=== PATIENT | female | born 1945 | race Caucasian/White ===

== ENCOUNTER → 2024-01-24 12:54 | Outpatient (REF) | payer MEDICARE, SELFPAY | LOC: RAD 12:54 | PROVIDERS: ATTENDING PHYSICIAN Nurse Practitioner Family; FAMILY PHYSICIAN Internal Medicine | DX: J32.9 Chronic sinusitis, unspecified (principal) | CPT/HCPCS: 70486 ==

== ENCOUNTER → 2024-03-26 07:01 | Outpatient (REF) | payer MEDICARE, SELFPAY | LOC: RAD 07:01 | PROVIDERS: ATTENDING PHYSICIAN Nurse Practitioner Family | DX: G44.52 New daily persistent headache (NDPH) (principal) | CPT/HCPCS: 70470; Q9967 ==

== ENCOUNTER → 2024-04-16 10:33 | Outpatient (REF) | payer MEDICARE, SELFPAY | LOC: RAD 10:33 | PROVIDERS: ATTENDING PHYSICIAN Nurse Practitioner Family | DX: M54.2 Cervicalgia (principal) | CPT/HCPCS: 72050 ==

== ENCOUNTER 2025-02-14 13:38 | Observation (INO) | payer MEDICARE, SELFPAY ==
[2025-02-14] VITALS (8 sets, daily range): BP systolic 123–187; BP diastolic 60–91; BMI 29.1; BMI 28.4
--- NOTE | 2025-02-14 05:21 | ED.GENMED ---
History of Present Illness
<Clarita Patel PA-C - Last Filed: 02/15/25 12:18>
General
Chief Complaint: Abdominal Pain
Source: patient
Exam Limitations: none
Time Seen by Provider: 02/14/25 05:02
Nursing documentation reviewed up to this point in time: agreed with
History of Present Illness
History of Present Illness:
79 y/o F with h/o hld
pain in the RUQ radiating to her back since yesterday am sometime; waxing and waning
associated with nausea, no vomiting
no urinary symptoms
no diarrhea, last BM yesterday am
no fever/chills
has had this before a few times over the year or more without findings, she was here in 2021 without any radiologic evidence of kidney stone or gb stones
she suspects gallsontes but doesn't know if it's post prandial
took a muscle relaxant last night
had trouble sleeping
Past History
<PEBBLES Rosario Last Filed: 02/15/25 12:18>
Past History
ED Past Medical History: Hypercholesterolemia
ED Past Surgical History: Gynecological (Hysterectomy)
Social History
Tobacco: Non-smoker
Alcohol: Occasional
Drug: None
Personal:
Living: with family
Review of Systems
<Clarita Patel PA-C - Last Filed: 02/15/25 12:18>
Review of Systems
Allergies reviewed?: Yes
All Other Systems: Not applicable
Phy Exam
<PEBBLES Rosario Last Filed: 02/15/25 12:18>
Physical Exam
Physical Exam:
GENERAL: Alert, uncomfortable
Neck: supple
CARDIAC: Regular rate and rhythm .no edema
LUNGS: Clear breath sounds bilaterally, no acute respiratory distress, no wheezes/rales/rhonchi
ABDOMEN: Soft, normal bowel sounds, nondistended, mild RUQ tendneres mild R cva tenderness, no guarding, no rebound, neg vital's
NEUROLOGICAL: Alert and oriented, no focal neuro deficits
SKIN: Warm and dry, skin intact.
PSYCH: Normal and appropriate interaction.
Course
<Clarita Patel PA-C - Last Filed: 02/15/25 12:18>
Orders/Labs/Results
Orders:
Orders
02/14/25 05:16
Electrocardiogram (*1) Urgent
Reason for Study: Abdominal Pain
EKG- Treatment ONCE
0.9% Sodium Chloride 1000 ml [Nss] 1,000 ml IV BOLUS
HYDROmorphone [Dilaudid] 0.5 mg IV NOW STA
Ketorolac [Toradol] 15 mg IV NOW STA
Ondansetron Injectable [Zofran] 4 mg IV NOW STA
02/14/25 05:24
C-Reactive Protein Routine
Comment: ADD ON
Complete Blood Count/With Diff Urgent
Comprehensive Metabolic Panel Urgent
Lipase Urgent
Urinalysis Reflex To Culture Urgent
Date Specimen was Collected: 02/14/25
Time Specimen was Collected: 05:23
Urine Creatinine Routine
Date Specimen was Collected: 02/14/25
Time Specimen was Collected: 17:42
Urine Microscopic Reflex Cult Urgent
Urine Culture Urgent
ABDIFATAH Source: U
Specimen Description:
Date Specimen was Collected: 02/14/25
Time Specimen was Collected: 05:23
02/14/25 05:49
CT Abd/Pel (IV only)-DH only Urgent
Comment:
Reason For Exam: R sided abd pain/flank pain, + ua
02/14/25 05:56
Morphine Sulfate 4 mg IV NOW STA
02/14/25 08:33
0.9% Sodium Chloride 1000 ml [Nss] 1,000 ml IV BOLUS
Morphine Sulfate 4 mg IV NOW STA
02/14/25 08:34
Morphine Sulfate 4 mg .ROUTE .STK-MED ONE
02/14/25 Lunch
Clear Liquid
At Your Request: Full Participation
02/14/25 12:07
Admit/Transfer Patient As Directed
Co-Sign Provider:
Level of Care: Observation services
Assign to:: Medical/Surgical
Physician / Group: Annemarie
Diagnosis: Abdominal pain required monitoring adn additional workup
Reason for Hospitalization: Above
Expected length of stay greater than two midnights?: No
ELOS- Estimated Length of Stay in days: 1
I certify the patient meets the requirements for IP care: No
PRN Pain Medication Management As Directed
May give lesser potent ordered pain med per pt: Yes
preference::
Protocol:: Medication orders for pain may be administered in a
manner that supports deferring to patient preference
when the pt is:
- Requesting an ordered lesser potent pain medication.
Least to most potent pain medications are defined
as: acetaminophen < NSAID < tramadol < opioids
(morphine, oxycodone, hydromorphone).
- Requesting a lesser dose of the same medication IF
ORDERED.
- Requesting a less intrusive route of administration
if both routes are prescribed by the provider (PO <
IV).
02/14/25 12:13
Code Status As Directed
Resuscitation Status: Full Code
02/14/25 12:32
US Abdomen Complete/Upper Routine
Comment:
Reason For Exam: RUQ pain, elevated lipase
02/14/25 14:45
0.9% Sodium Chloride 1000 ml [Nss] 1,000 ml IV 100 mls/hr
Acetaminophen [Tylenol] 650 mg PO Q6HPRN PRN
02/14/25 14:45
GASTROINTESTINAL CONSULT Routine
Consulting Provider: Bhargavi Arteaga
Was physician already notified: Yes
Sequential Compression Device [Pneumatic Compression Sleeves] As Directed
Type: Knee high
DX Deep Vein Thrombosis Video Routine
02/14/25 18:00
Escitalopram Oxalate [Lexapro] 10 mg PO QPM
02/15/25 06:50
CBC/With Diff [Complete Blood Count/With Diff] IN AM
CMP [Comprehensive Metabolic Panel] IN AM
Lipase IN AM
02/15/25 08:00
Cholecalciferol (Vitamin D3) [VITAMIN D3 (cholecalciferol)] 25 mcg PO DAILY
Rosuvastatin Calcium [Crestor] 10 mg PO DAILY
Abnormal Lab Results
02/14/25
05:24
Hgb 10.0 L g/dL
(12.0-16.0)
Hct 31.4 L %
(37.0-47.0)
MCV 61.8 L fL
(81.0-99.0)
MCH 19.7 L pg
(27.0-31.0)
MCHC 31.8 L g/dL
(33.0-37.0)
RDW 15.5 H %
(11.5-14.5)
Glucose 121 H mg/dl
(70-99)
Lipase 3075 H* U/L
(23-300)
Ur Occult Blood Reflex 4+ A
(Negative)
Leukocyte Esterase Rfl 3+ A
(Negative)
Urine RBC 70-80 A /HPF
(0-2)
Urine WBC (Reflex) 11-15 A /HPF
(0-5)
Urine Bacteria (Reflex) Many A
(Negative)
Urine Albumin (Reflex) 1+ A
(Neg - Trace)
02/14/25 05:24
02/14/25 05:24
Vital Signs
Initial and Last Documented VS:
Initial Vital Signs
Temp Pulse Resp BP Pulse Ox
36.3 C 79 16 187/91 98
02/14/25 04:55 02/14/25 04:55 02/14/25 04:55 02/14/25 04:55 02/14/25 04:55
Last Documented Vital Signs
Temp Pulse Resp BP Pulse Ox
36.9 C 65 16 165/69 95
02/15/25 07:00 02/15/25 07:00 02/15/25 07:00 02/15/25 07:00 02/15/25 07:00
<Wil Unger PA-C - Last Filed: 02/14/25 08:38>
Orders/Labs/Results
Orders:
Orders
02/14/25 05:16
Electrocardiogram (*1) Urgent
Reason for Study: Abdominal Pain
EKG- Treatment ONCE
0.9% Sodium Chloride 1000 ml [Nss] 1,000 ml IV BOLUS
HYDROmorphone [Dilaudid] 0.5 mg IV NOW STA
Ketorolac [Toradol] 15 mg IV NOW STA
Ondansetron Injectable [Zofran] 4 mg IV NOW STA
02/14/25 05:24
C-Reactive Protein Routine
Comment: ADD ON
Complete Blood Count/With Diff Urgent
Comprehensive Metabolic Panel Urgent
Lipase Urgent
Urinalysis Reflex To Culture Urgent
Date Specimen was Collected: 02/14/25
Time Specimen was Collected: 05:23
Urine Creatinine Routine
Date Specimen was Collected: 02/14/25
Time Specimen was Collected: 17:42
Urine Microscopic Reflex Cult Urgent
Urine Culture Urgent
ABDIFATAH Source: U
Specimen Description:
Date Specimen was Collected: 02/14/25
Time Specimen was Collected: 05:23
02/14/25 05:49
CT Abd/Pel (IV only)-DH only Urgent
Comment:
Reason For Exam: R sided abd pain/flank pain, + ua
02/14/25 05:56
Morphine Sulfate 4 mg IV NOW STA
02/14/25 08:33
0.9% Sodium Chloride 1000 ml [Nss] 1,000 ml IV BOLUS
Morphine Sulfate 4 mg IV NOW STA
02/14/25 08:34
Morphine Sulfate 4 mg .ROUTE .STK-MED ONE
02/14/25 Lunch
Clear Liquid
At Your Request: Full Participation
02/14/25 12:07
Admit/Transfer Patient As Directed
Co-Sign Provider:
Level of Care: Observation services
Assign to:: Medical/Surgical
Physician / Group: Annemarie
Diagnosis: Abdominal pain required monitoring adn additional workup
Reason for Hospitalization: Above
Expected length of stay greater than two midnights?: No
ELOS- Estimated Length of Stay in days: 1
I certify the patient meets the requirements for IP care: No
PRN Pain Medication Management As Directed
May give lesser potent ordered pain med per pt: Yes
preference::
Protocol:: Medication orders for pain may be administered in a
manner that supports deferring to patient preference
when the pt is:
- Requesting an ordered lesser potent pain medication.
Least to most potent pain medications are defined
as: acetaminophen < NSAID < tramadol < opioids
(morphine, oxycodone, hydromorphone).
- Requesting a lesser dose of the same medication IF
ORDERED.
- Requesting a less intrusive route of administration
if both routes are prescribed by the provider (PO <
IV).
02/14/25 12:13
Code Status As Directed
Resuscitation Status: Full Code
02/14/25 12:32
US Abdomen Complete/Upper Routine
Comment:
Reason For Exam: RUQ pain, elevated lipase
02/14/25 14:45
0.9% Sodium Chloride 1000 ml [Nss] 1,000 ml IV 100 mls/hr
Acetaminophen [Tylenol] 650 mg PO Q6HPRN PRN
02/14/25 14:45
GASTROINTESTINAL CONSULT Routine
Consulting Provider: Bhargavi Arteaga
Was physician already notified: Yes
Sequential Compression Device [Pneumatic Compression Sleeves] As Directed
Type: Knee high
DX Deep Vein Thrombosis Video Routine
02/14/25 18:00
Escitalopram Oxalate [Lexapro] 10 mg PO QPM
02/15/25 06:50
CBC/With Diff [Complete Blood Count/With Diff] IN AM
CMP [Comprehensive Metabolic Panel] IN AM
Lipase IN AM
02/15/25 08:00
Cholecalciferol (Vitamin D3) [VITAMIN D3 (cholecalciferol)] 25 mcg PO DAILY
Rosuvastatin Calcium [Crestor] 10 mg PO DAILY
Abnormal Lab Results
02/14/25
05:24
Hgb 10.0 L g/dL
(12.0-16.0)
Hct 31.4 L %
(37.0-47.0)
MCV 61.8 L fL
(81.0-99.0)
MCH 19.7 L pg
(27.0-31.0)
MCHC 31.8 L g/dL
(33.0-37.0)
RDW 15.5 H %
(11.5-14.5)
Glucose 121 H mg/dl
(70-99)
Lipase 3075 H* U/L
(23-300)
Ur Occult Blood Reflex 4+ A
(Negative)
Leukocyte Esterase Rfl 3+ A
(Negative)
Urine RBC 70-80 A /HPF
(0-2)
Urine WBC (Reflex) 11-15 A /HPF
(0-5)
Urine Bacteria (Reflex) Many A
(Negative)
Urine Albumin (Reflex) 1+ A
(Neg - Trace)
02/14/25 05:24
02/14/25 05:24
Vital Signs
Initial and Last Documented VS:
Initial Vital Signs
Temp Pulse Resp BP Pulse Ox
36.3 C 79 16 187/91 98
02/14/25 04:55 02/14/25 04:55 02/14/25 04:55 02/14/25 04:55 02/14/25 04:55
Last Documented Vital Signs
Temp Pulse Resp BP Pulse Ox
36.9 C 65 16 165/69 95
02/15/25 07:00 02/15/25 07:00 02/15/25 07:00 02/15/25 07:00 02/15/25 07:00
<Clarita Patel PA-C - Last Filed: 02/15/25 12:18>
MDM/Problems Addressed
Differential Diagnosis Includes:
kidney stone, pyelo, gallstones
MDM/Problems Addressed:
79 y/o F
h/o HLD
here with R sided upper abd pain radiating to the back with nauesa, waxing and waning since yesterday
no fever/chills/dysuria/hematuria/vomiting/diarrhea
has had similar episodes but no diagnosis, usually goes away on its own
pt suspects she has gallstones
no h/o kidney stones
hypertensive, uncfomrotable
mild R cva tendreness and minimal RUQ tendenress
wbc normal
ua + for blood and leuks
cr normal
initially started with us but changed to CT after ua results
normal lfts
<Wil Unger PA-C - Last Filed: 02/14/25 08:38>
*Critical Care Note
Total Time (30-74mins, 75-104mins- exclusive of procedures): Not Applicable
<Wil Unger PA-C - Last Filed: 02/14/25 08:38>
Update Note
Update Note:
Received care of patient pending CT of abdomen. Patient has right upper quadrant or right flank pain and notes increasing pain despite pain medicine here. Workup demonstrates lipase of 3075. CT shows hydroureter and hydronephrosis on right side
but no obvious stone to suggest recently passed stone. Given increased pain and findings of pancreatitis will admit to hospital
ED Attending Note
<Clarita Patel PA-C - Last Filed: 02/15/25 12:18>
-
Portions of this chart may have been created with voice recognition software.� Occasional wrong word or��sound alike� substitutions may have occurred due to the inherent limitations of voice recognition software.
Discharge Plan
Departure
Patient Disposition: Admit
Date of Disposition: 02/14/25
Time of Disposition: 08:37
Presentation/result/management discussed w/ accepting MD/DO: Hospitalist
Discharge Problem:
Acute pancreatitis
Interventions
Interventions:
*Risk Screen - Suicide Last Done: 02/14/25 04:55
*General Assessment Last Done: 02/14/25 05:09
*Neglect/Abuse Screening Last Done: 02/14/25 05:09
*ED- Fall Risk Assessment Last Done: 02/14/25 05:09
*ED COVID-19 Vaccine History Last Done: 02/14/25 05:09
*Nursing Disposition Last Done: 02/14/25 14:47
PH-Spvegd-Jrjbzpnroe Assessment Last Done: 02/14/25 05:09
Discharge Date and Time
Discharge Date/Time: 02/14/25 14:48
[2025-02-14] MEDS: NSS 1000 IV ×4 (05:33→23:37)
[2025-02-14] MEDS: ZOFRAN 4 MG IV (05:33)
[2025-02-14] MEDS: TORADOL 15 MG IV (05:33)
[2025-02-14 05:40] LABS: % Basophils 0.9 % (0-2); % Eosinophils 0.5 % (0-6); % Immature Granulocytes 0.4 % (0-0.5); % Lymphocytes 29.8 % (20.5-51.1); % Neutrophils 61.4 % (42.2-75.2); Absolute Basophils 0.1 10^3/uL (0-0.2); Absolute Lymphocytes 1.7 10^3/uL (1.2-3.4); Absolute Monocytes 0.4 10^3/uL (0.1-0.6); Absolute Neutrophils 3.4 10^3/uL (1.4-6.5); Hematocrit 31.4 % (37.0-47.0); Mean Corp Hgb Conc. 31.8 g/dL (33.0-37.0); Mean Corpuscular Hgb 19.7 pg (27.0-31.0); Mean Corpuscular Volume 61.8 fL (81.0-99.0); Mean Platelet Volume 9.8 fL (7.4-10.4); Nucleated Red Blood Cells % 0 %; Platelet Count 190 10^3/uL (130-400); Red Blood Cell Count 5.08 10^6/uL (4.20-5.40); Red Cell Dist. Width 15.5 % (11.5-14.5); White Blood Cell Count 5.6 10^3/uL (4.8-10.8)
[2025-02-14 05:44] LABS: Urine Albumin 1+ (Neg - Trace); Urine Bilirubin Negative (Negative); Urine Character Clear (Clear); Urine Color Yellow; Urine Glucose Negative (Negative); Urine Ketone Negative (Negative); Urine Leukocyte 3+ (Negative); Urine Nitrite Negative (Negative); Urine Occult Blood 4+ (Negative); Urine Urobilinogen Negative (Neg - 1+)
[2025-02-14 06:01] LABS: ALT (SGPT) 24 U/L (0-35); AST (SGOT) 20 U/L (14-36); Albumin 4.2 g/dl (3.5-5.0); Alkaline Phosphatase 82 U/L (38-126); Blood Urea Nitrogen 16 mg/dl (7-17); Calcium 9.6 mg/dl (8.4-10.2); Carbon Dioxide 26 mmol/L (22-30); Chloride 102 mmol/L (98-107); Estimated Creatinine Clearance 55 ml/min; Glucose 121 mg/dl (70-99); Sodium 136 mmol/L (135-145); Total Bilirubin 1.3 mg/dl (0.2-1.3); Total Protein 6.8 g/dl (6.3-8.2); eGFR > 60.00
[2025-02-14] MEDS: MORPHINE SULFATE 4 MG IV ×2 (06:08→08:39)
[2025-02-14 06:14] LABS: Lipase 3075 U/L (23-300)
[2025-02-14 06:43] LABS: Urine Amorphous Seen; Urine Mucus Many; Urine Squamous Cell 16-20 /LPF (Few); Urine Urothelial Cell >30 /LPF (FEW)
[2025-02-14 06:45] LABS: Urine Bacteria Many (Negative)
[2025-02-14 06:51] LABS: Urine Red Blood Cell 70-80 /HPF (0-2)
--- NOTE | 2025-02-14 12:19 | HPS.HSE ---
Addendum entered and electronically signed by Leonid Sharpe MD 02/14/25 12:59:
Findings of microhematuria and right hydronephrosis discussed with urology.
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 A congenital condition that can become symptomatic as woman loose intracorporeal adipose. Findings of chronic hematuria would be
consistent with this condition. No urgent evaluation or intervention is indicated.
Original Note:
Family Physician
-
Family Physician: NOT KNOW UNKNOWN - PT DOES
Chief Complaint
-
Right upper quadrant pain with radiation to the back
History of Present Illness
Patient is a 79 years old female with thalassemia who presents with intermittent right upper quadrant pain radiating to the back. Patient describes pain waxing and waning with no relation to food intake or positioning. She had associated nausea
and vomiting. Denies diarrhea. She denies any fever. Denies any urinary symptoms.
Patient reports similar episode about a year before requiring admission to the hospital and unrevealing workup.
In addition she mentioned chronic hematuria with no prior urology workup.
Medical History
Past Medical History
Past Medical History: Reports Other (Thalassemia)
Past Surgical History: Reports None
Social History
Tobacco: Non-smoker
Personal:
Living: With Family
Family History
Family History: Not pertinent
Allergies / Home Medications
Allergies reflects when Allergies were last updated in [employer].
Home Medications with original date entered in [employer]
Allergy/Medication List:
Allergies
Allergy/AdvReac Type Severity Reaction Status Date / Time
ciprofloxacin [From Cipro] Allergy Rash Verified 08/21/22 08:04
Home Medications
cholecalciferol (vitamin D3) 25 mcg (1,000 unit) tablet 25 mcg PO DAILY 02/14/25
escitalopram oxalate 10 mg tablet 10 mg PO QPM 02/14/25
rosuvastatin 10 mg tablet 10 mg PO DAILY 02/14/25
vitamin B complex 1 tab PO DAILY 02/14/25
Review of Systems
-
A 12 point ROS was completed and negative except as noted: Yes
Abdomen/GI: Reports See HPI
: Reports No Symptoms
Physical Exam
Vital Signs
Vital Signs
Temp Pulse Resp BP Pulse Ox
97.3 F 79 16 138/72 96
02/14/25 04:55 02/14/25 04:55 02/14/25 04:55 02/14/25 10:01 02/14/25 10:01
Physical Exam
General: Well Developed, Well Nourished and No Apparent Distress
HEENT: NormoCephalic, Moist mucous membranes and Atraumatic
Respiratory: Clear
Cardiac: S1/S2 and Regular Rhythm; No Murmur or Rub
GI: Soft, Non Tender, Non Distended and Normal Bowel Sounds; No Organomegaly
Rectal: Deferred by Provider
Musculoskeletal: No Clubbing, No Cyanosis and No Edema
Skin: No Rash
Neuro: Nonfocal/grossly intact
Laboratory Results
-
02/14/25 05:24
02/14/25 05:24
Laboratory Results
Total Bilirubin 1.3 mg/dl (0.2-1.3) 02/14/25 05:24
AST 20 U/L (14-36) 02/14/25 05:24
ALT 24 U/L (0-35) 02/14/25 05:24
Alkaline Phosphatase 82 U/L (38-126) 02/14/25 05:24
Lipase 3075 U/L (23-300) H* 02/14/25 05:24
Impression/Plan
-
IMPRESSION:
79 years old female with thalassemia who presents with acute onset of right upper quadrant pain with radiation to the back, associated with nausea and vomiting.
Elevated lipase with concern for pancreatitis possible gallstone
Microhematuria
Right hydronephrosis/hydroureter.
Thalassemia
PLAN:
CT of the abdomen and pelvis with IV contrast only:
Nonspecific mild right hydronephrosis and hydroureter. No obstructing stones or lesions appreciated. Findings may related to a recently passed calculus, though no inflammatory changes appreciated.
Right upper quadrant pain with radiation to the back.
Afebrile.
Abdominal exam without tenderness with negative Shaikh sign.
Normal LFT
Imaging as above with no evidence of hepatobiliary abnormalities
Elevated lipase with no clinical evidence of pancreatitis.
Possibly biliary colic with transient lipase elevation. 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
Admit for observation.
Check CRP.
Clear liquid diet.
Additional imaging with abdominal ultrasound, consider MRI MRCP.
Follow labs including CBC and CMP
GI evaluation
Microhematuria.
CT as above with right hydronephrosis hydroureter. UA with hematuria, although with no other urinary symptoms.
Patient complains of chronic hematuria, although with no prior formal urologic workup.
Check urine culture for completeness.
Curbside urology for review of imaging.
? If require urology follow-up patient versus outpatient.
Thalassemia
Hemoglobin at the baseline
DVT prophylaxis, mechanical
Full code
[2025-02-14] MEDS: LEXAPRO 10 MG PO (17:39)
[2025-02-15 07:00] VITALS: BP 165/69
[2025-02-15 07:29] LABS: % Basophils 1.1 % (0-2); % Eosinophils 0.7 % (0-6); % Immature Granulocytes 0.5 % (0-0.5); % Lymphocytes 48.6 % (20.5-51.1); % Monocytes 8.4 % (1.7-9.3); % Neutrophils 40.7 % (42.2-75.2); Absolute Basophils 0.1 10^3/uL (0-0.2); Absolute Lymphocytes 2.2 10^3/uL (1.2-3.4); Absolute Monocytes 0.4 10^3/uL (0.1-0.6); Absolute Neutrophils 1.8 10^3/uL (1.4-6.5); Hematocrit 29.1 % (37.0-47.0); Hemoglobin 9.3 g/dL (12.0-16.0); Mean Corpuscular Volume 62.7 fL (81.0-99.0); Mean Platelet Volume 10.6 fL (7.4-10.4); Nucleated Red Blood Cells % 0 %; Platelet Count 173 10^3/uL (130-400); Red Blood Cell Count 4.64 10^6/uL (4.20-5.40); Red Cell Dist. Width 15.6 % (11.5-14.5); White Blood Cell Count 4.4 10^3/uL (4.8-10.8)
--- NOTE | 2025-02-15 07:37 | W.PN.HOSP.TC ---
Today's Communication/Plan
-
Discharge today
Assessment / Plan
Assessment / Plan
Physical Exam
General: Well Developed, Well Nourished and No Apparent Distress
HEENT: NormoCephalic, Moist mucous membranes and Atraumatic
Respiratory: Clear
Cardiac: S1/S2 and Regular Rhythm; No Murmur or Rub
GI: Soft, Non Tender, Non Distended and Normal Bowel Sounds; No Organomegaly
: Suprapubic tenderness. RT sided abdominal and right lower back tenderness.
Musculoskeletal: No Cyanosis and No Edema
Skin: Warm. Dry.
Neuro: Nonfocal/grossly intact

IMPRESSION:
79 years old female with thalassemia who presented with acute onset of right upper quadrant pain with radiation to the back, associated with nausea and vomiting.
Elevated lipase -- no pancreatitis -- LIPASE SIGNIFICANTLY IMPROVED/DECREASED -- passed gallstone?
Microhematuria
Right hydronephrosis/hydroureter -- suspected chronic right hydronephrosis and hematuria
Thalassemia
PLAN:
CT of the abdomen and pelvis with IV contrast only:
Nonspecific mild right hydronephrosis and hydroureter. No obstructing stones or lesions appreciated. Findings may related to a recently passed calculus, though no inflammatory changes appreciated.
MRCP:
There is no evidence of choledocholithiasis or biliary obstruction. Mild hepatic steatosis. Mild prominence of the right-sided collecting system and ureter, unchanged from recent CT. No discrete obstruction is identified on this examination.
Right upper quadrant pain with radiation to the back.
Afebrile.
Abdominal exam without tenderness with negative Shaikh sign.
Normal LFT
Imaging as above with no evidence of hepatobiliary abnormalities
Elevated lipase with no clinical evidence of pancreatitis.
Possibly biliary colic/passed gallstone with transient lipase elevation. 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
CRP normal.
Low fat diet.
Follow labs including CBC and CMP outpatient.
GI evaluation
Dysuria/Suprapubic Tenderness
-No leukocytosis or fever, no pyelonephritis on imaging done in the hospital, confirmed with on-call radiologist Dr. Juve Duarte that patient does NOT have pyelonephritis on imaging
-Given CVA tenderness and some ureteropelvic junction obstruction, will treat as complicated UTI with relevant duration of 10 days of antibiotics (Day 1 is 02/15/25)
-Urine culture with mixed silvio
-Rocephin given on 02/15/25
-Discharge with Cefpodoxime 200 mg twice daily for 9 days (Day 1 was Rocephin here in the hospital)
Microhematuria.
CT as above with right hydronephrosis hydroureter. UA with hematuria, although with no other urinary symptoms.
Patient complains of chronic hematuria, although with no prior formal urologic workup.
Check urine culture for completeness.
Curbside urology for review of imaging. Reviewed imaging with possibly accessory artery crossing ureteropelvic junction causing hydronephrosis and hematuria -- Dr. Sharpe discussed with urology, patient may have form vanegas of ureteropelvic
junction obstruction due to lower renal pole crossing accessory artery. A congenital condition that can become symptomatic as woman loose intracorporeal adipose. Findings of chronic hematuria would be consistent with this condition. No urgent
evaluation or intervention is indicated.
Outpatient urology follow-up
Thalassemia
Hemoglobin at the baseline
DVT prophylaxis, mechanical
Full code
More than 30 minutes spent in discharge including
Final examination of the patient
Summarizing hospital stay
Instructions for continuing care to all relevant caregivers
Preparation of discharge records, prescriptions, and referral forms
Total time spent (in minutes): 38
Anticipated Discharge: Today
Subjective/Interval History
-
Date of Service: February 15, 2025
Patient was seen and examined. She reported dysuria, and reported that her abdominal pain has mostly resolved.
Objective Data
-
Labs:
Laboratory Results
02/15/25
06:50
WBC 4.4 L
Hgb 9.3 L
Hct 29.1 L
Plt Count 173
Sodium Pending
Potassium Pending
Chloride Pending
Carbon Dioxide Pending
BUN Pending
Creatinine Pending
Glucose Pending
Calcium Pending
Total Bilirubin Pending
AST Pending
ALT Pending
Alkaline Phosphatase Pending
Vital Signs:
Vital Signs
Temp Pulse Resp BP Pulse Ox
98.1 F 66 18 141/60 96
02/14/25 22:48 02/14/25 22:48 02/14/25 22:48 02/14/25 22:48 02/14/25 22:48
I&O
02/14/25 02/15/25 02/16/25
06:59 06:59 06:59
Intake Total 720 / 720 1000 / 1000
Balance 720 / 720 1000 / 1000
[2025-02-15 07:57] LABS: ALT (SGPT) 22 U/L (0-35); AST (SGOT) 20 U/L (14-36); Albumin 3.7 g/dl (3.5-5.0); Alkaline Phosphatase 72 U/L (38-126); Blood Urea Nitrogen 12 mg/dl (7-17); Calcium 8.8 mg/dl (8.4-10.2); Carbon Dioxide 29 mmol/L (22-30); Chloride 105 mmol/L (98-107); Estimated Creatinine Clearance 54 ml/min; Glucose 90 mg/dl (70-99); Lipase 451 U/L (23-300); Potassium 4.4 mmol/L (3.5-5.1); Sodium 139 mmol/L (135-145); Total Bilirubin 1.7 mg/dl (0.2-1.3); eGFR > 60.00
[2025-02-15] MEDS: VALIUM 2 MG PO ×2 (08:48→09:31)
[2025-02-15] MEDS: VITAMIN D3 (cholecalciferol) 25 MCG PO (08:48)
[2025-02-15] MEDS: CRESTOR 10 MG PO (08:48)
[2025-02-15 10:02] LABS: Urine Albumin Negative (Neg - Trace); Urine Bilirubin Negative (Negative); Urine Character Clear (Clear); Urine Color Yellow; Urine Glucose Negative (Negative); Urine Ketone Negative (Negative); Urine Leukocyte Negative (Negative); Urine Nitrite Negative (Negative); Urine Occult Blood 3+ (Negative); Urine Specific Gravity 1.005 (<1.030); Urine Urobilinogen Negative (Neg - 1+); Urine pH 6.5 (5.0-9.0)
[2025-02-15] MEDS: VALIUM 4 MG PO (10:14)
[2025-02-15 10:52] LABS: Urine Bacteria Few (Negative); Urine White Cell 0-2 /HPF (0-5)
--- NOTE | 2025-02-15 12:11 | CON.GI ---
Consultation
-
Date/Time Consultation Requested: 02/14/2025
Date/Time Consultation Performed: 02/15/2025
Requesting Provider: Dr Sharpe
Performing Provider: Dr Arteaga
Reason for Consultation: abd pain
Medical History
Chief Complaint / HPI
Chief Complaint: R sided abdominal pain
History of Present Illness:
Cari is a 79yo W with h/o of thalassemia who presents for a few days of acute epigastric to R flank abd pain. It caused her trouble sleeping so she came in for eval. She had similar issue several years ago while at the [facility] and was in their ER
with also negative workup. She currently feels that pain is mostly resolved. Denies nausea/vomiting, odynophagia, dysphagia, diarrhea, constipation or wt loss. She does not use NSAIDs or anticoagulants. She does not drink much ETOH. Since using
lexapro she's cut down.
Past Medical History
Past Medical History: Other (Thallasemia Hyperlipidemia)
Past Surgical History: Other (Colonoscopy 2022 diverticulosis, IH. recall 5 years)
Social History
Tobacco: Non-Smoker
Alcohol: Occasional
Drug: None
Personal:
Living: With Family
Allergies / Home Medications
Allergy/AdvReac Type Severity Reaction Status Date / Time
ciprofloxacin [From Cipro] Allergy Rash Verified 08/21/22 08:04
�Medication �Instructions �Recorded
cholecalciferol (vitamin D3) 25 25 mcg PO DAILY 02/14/25
mcg (1,000 unit) tablet
escitalopram oxalate 10 mg tablet 10 mg PO QPM 02/14/25
rosuvastatin 10 mg tablet 10 mg PO DAILY 02/14/25
vitamin B complex 1 tab PO DAILY 02/14/25
Review of Systems
-
All other systems: A 12 pt ROS was Negative except as stated above in HPI
Vital Signs
Temp Pulse Resp BP Pulse Ox
98.5 F 65 16 165/69 95
02/15/25 07:00 02/15/25 07:00 02/15/25 07:00 02/15/25 07:00 02/15/25 07:00
Physical Exam
Exam
GEN: No acute distress, conversant, pleasant
HEENT: anicteric, extraocular movements intact, clear oropharynx without exudates
GI: soft, non-distended, RUQ mildly tender to palpation, normal active bowel sounds, no hepatosplenomegaly
EXT: warm, well perfused, trace edema bilaterally
NEURO: AAOx3, non-focal
Results
WBC 4.4 10^3/uL (4.8-10.8) L 02/15/25 06:50
Hgb 9.3 g/dL (12.0-16.0) L 02/15/25 06:50
Hct 29.1 % (37.0-47.0) L 02/15/25 06:50
MCV 62.7 fL (81.0-99.0) L 02/15/25 06:50
Plt Count 173 10^3/uL (130-400) 02/15/25 06:50
Absolute Neuts (auto) 1.8 10^3/uL (1.4-6.5) 02/15/25 06:50
Sodium 139 mmol/L (135-145) 02/15/25 06:50
Potassium 4.4 mmol/L (3.5-5.1) 02/15/25 06:50
Chloride 105 mmol/L (98-107) 02/15/25 06:50
Carbon Dioxide 29 mmol/L (22-30) 02/15/25 06:50
BUN 12 mg/dl (7-17) 02/15/25 06:50
Creatinine 0.8 mg/dL (0.6-1.0) 02/15/25 06:50
Calcium 8.8 mg/dl (8.4-10.2) 02/15/25 06:50
Total Bilirubin 1.7 mg/dl (0.2-1.3) H 02/15/25 06:50
AST 20 U/L (14-36) 02/15/25 06:50
ALT 22 U/L (0-35) 02/15/25 06:50
Alkaline Phosphatase 72 U/L (38-126) 02/15/25 06:50
Lipase 451 U/L (23-300) H 02/15/25 06:50
Diagnostic Image Results:
MRI fatty liver no bile duct dilation or choledocholithiasis. Mild prominence of R sided collecting system and ureter.
Abd US fatty liver
CTAP 1. Nonspecific mild right hydronephrosis and hydroureter. No obstructing stones or lesions appreciated. Findings may related to a recently passed calculus, though no inflammatory changes appreciated.
Prior GI Procedures:
[address] [place] diverticulosis, IH. recall 5 years
Assessment / Plan
-
Cari is a 79yo W with h/o thalassemia who was admitted for acute R sided abd pain with elevated lipase. She also has hematuria and mild R sided hydronephrosis
Impression
- Acute abd pain now improved
Could be a passed gallstone or ? kidney stone
- Elevated lipase
Does not meet criteria of pancreatitis given normal pancreas on CT and MRI without characteristic pain
- Hematuria and ? mild R sided hydronephrosis
- Fatty liver
- h/o thalassemia
- Hyperlipidemia
Recommendations
- MRI reviewed and results d/w patient
- Adv to low fat diet
- C/w IVF
- Should FU with urology OP basis
- If pain recurs can see surgery OP for elective CYY
At this juncture GI will sign off please call for questions
Data Reviewed
-
CT Scan: Image Personally Visualized and interpreted
Ultrasound: Image Personally Visualized and interpreted
MRI: Image Personally Visualized and interpreted
-
-
Thank you for consultation and allowing me to participate in the patient's care. Please call the personal banking assistant GI physician during the after hours with any questions or concerns.
[2025-02-15] MEDS: NSS IV (14:09)
[2025-02-15] MEDS: ROCEPHIN 1000 MG IV (14:21)
[2025-02-15] MEDS: STERILE WATER FOR INJECTION 10 ML IV (14:21)
[2025-02-15 15:00] VITALS: BP 135/69
--- NOTE | 2025-02-15 16:23 | CM ---
Cm met with patient. She lives with spouse in one level home. She is independent. No history of VNA, SNF, DME.
PCP Kenyon Barker
Pharmacy: [facility]
PLAN: home anticipate no needs.
--- NOTE | 2025-02-15 16:31 | W.DCSUMMARY ---
Discharge Summary
Discharge Data
Date of Admission: 02/14/25
Date of Discharge: 02/15/25
Total time spent discharging patient (in min): 38
-
Pending Results: No
Hospital Course
79 year old female with thalassemia who presented with intermittent right upper quadrant pain radiating to the back. Patient reported similar episode about a year prior to presentation, requiring admission to the hospital and unrevealing workup. In
addition, patient mentioned chronic hematuria with no prior urology workup. Patient was found to have elevated lipase but no radiologic or clinical evidence of pancreatitis. CT imaging was done, with findings below (please also see radiologist's
official report for full details). It was noted that patient possibly had biliary colic with transient lipase elevation, and that patient is at risk for cholelithiasis given thalassemia/chronic hemolysis. Passed gallstone was also a possibility.
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
that can become symptomatic as woman loose intracorporeal adipose -- findings of chronic hematuria would be consistent with this condition -- no urgent urologic evaluation or urologic intervention is indicated. Patient the next day developed dysuria
and was started on antibiotics for urinary tract infection. MRI abdomen showed no choledocholithiasis or bile duct dilation, and gallbladder was reported as unremarkable. Gastroenterology mentioned nothing to do. Patient would need to follow-up
closely with outpatient urology, and if pain recurred, then could see surgery outpatient for elective cholecystectomy.
Discharge Plan
-
Patient Disposition: Home (Routine Discharge)
Discharge Diagnosis/Procedures: Presentation with acute onset of right upper quadrant pain with radiation to the back, associated with nausea and vomiting
Dysuria/Suprapubic Tenderness on February 15, 2025
Elevated Lipase -- no pancreatitis -- LIPASE SIGNIFICANTLY IMPROVED/DECREASED -- passed gallstone?
Microhematuria
Right hydronephrosis/hydroureter -- suspected chronic right hydronephrosis and hematuria
Thalassemia
Abdomen/Pelvis CT (as per radiologist's report):
'FINDINGS:
LOWER CHEST: Lung bases clear. No pleural effusion.
LIVER: Within normal limits.
GALLBLADDER: Within normal limits.
BILE DUCTS: Within normal limits.
PANCREAS: Within normal limits.
SPLEEN: Within normal limits.
ADRENALS: Within normal limits.
KIDNEYS/URETERS: No urinary tract calculi identified. Mild right hydronephrosis and hydroureter with no obstructive stones or lesions appreciated. No delayed nephrogram.
BOWEL: No obstruction or wall thickening.
PERITONEUM: No ascites or free air.
REPRODUCTIVE: The uterus is surgically absent. No adnexal masses.
BLADDER: Within normal limits.
VESSELS: Non-aneurysmal abdominal aorta.
RETROPERITONEUM: No retroperitoneal or pelvic lymphadenopathy.
ABDOMINAL WALL: Within normal limits.
BONES: No suspicious lesions.
IMPRESSION:
1. Nonspecific mild right hydronephrosis and hydroureter. No obstructing stones or lesions appreciated. Findings may related to a recently passed calculus, though no inflammatory changes appreciated.
2. Additional findings above.'
Abdominal Ultrasound (as per radiologist's report):
'IMPRESSION:
Hepatic steatosis.
Negative for cholelithiasis.
Unremarkable appearance of the kidneys. No sonographic evidence for hydronephrosis.'
Abdomen MRI (as per radiologist's report):
'FINDINGS:
LUNG BASES: Unremarkable.
ABDOMEN:
LIVER: Normal morphology. There is mild diffuse loss of signal throughout the liver on out of phase imaging. There is no focal hepatic parenchymal abnormality.
BILE DUCTS: There is no intra or extrahepatic biliary ductal dilatation. The common bile duct measures 3 mm. There is no discrete filling defect or stricture.
GALLBLADDER: Unremarkable.
PANCREAS: Mildly atrophic, otherwise unremarkable.. Normal caliber pancreatic duct.
SPLEEN: Within normal limits.
ADRENAL GLANDS: No discrete nodule.
KIDNEYS: 3 mm cyst in the inferior pole the left kidney. There is mild prominence of the right-sided collecting system and ureter, similar to prior.
BOWEL: Normal caliber.
PERITONEUM: No ascites or free air. No fluid collection.
VASCULATURE: No abdominal aortic aneurysm. Major abdominal veins are patent.
RETROPERITONEUM: Within normal limits.
ABDOMINAL WALL: Unremarkable.
MUSCULOSKELETAL: No suspicious osseous abnormality. Mild degenerative changes of the lower lumbar spine.
IMPRESSION:
There is no evidence of choledocholithiasis or biliary obstruction.
Mild hepatic steatosis.
Mild prominence of the right-sided collecting system and ureter, unchanged from recent CT. No discrete obstruction is identified on this examination.'
Condition: Good
Diet: Low Fat
Activity: As tolerated
Driving Restrictions: Not until seen by your Dr
Blood Work: CBC and CMP and Bilirubin with your primary care provider's office in 2 to 3 days from today (today is February 15, 2025)
Instructions: Cefpodoxime
Referrals:
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 Findings of
chronic hematuria in hospitalization in February 2025.)
UNKNOWN - PT DOES,NOT KNOW [Family Provider] -
Kenyon Barker, [Non-Admitting Privileges] -
Additional Discharge Medication Instructions: Cefpodoxime is a new medication.
Prescriptions:
New
cefpodoxime 200 mg tablet
200 mg PO Q12H 9 Days Qty: 18 0RF
Rx Instructions:
First dose should be on February 16, 2025
Continued
vitamin B complex Tablet Extended Release
1 tab PO DAILY
escitalopram oxalate 10 mg tablet
10 mg PO QPM
rosuvastatin 10 mg tablet
10 mg PO DAILY
cholecalciferol (vitamin D3) 25 mcg (1,000 unit) Tablet
25 mcg PO DAILY
Discharge Orders:
Discharge Patient (As Directed); Ordered 02/15/25
Ordered By: Zaheer Santos
Discharge Date and Time
Discharge Date/Time: 02/15/25 16:59
Print Language: ROMANSH
== END 2025-02-15 16:59 | disposition home or self-care (01) ==
LOC: 4 WEST ACU 13:38
PROVIDERS: Physician Assistant; ADMITTING PHYSICIAN Internal Medicine; ATTENDING PHYSICIAN Hospitalist; CONSULT PHYSICIAN Internal Medicine Gastroenterology; EMERGENCY PHYSICIAN Student in an Organized Health Care Education/Training Program
DX: N13.1 Hydronephrosis with ureteral stricture, not elsewhere classified (principal); R10.11 Right upper quadrant pain; R11.2 Nausea with vomiting, unspecified; E78.00 Pure hypercholesterolemia, unspecified; I10 Essential (primary) hypertension; D56.9 Thalassemia, unspecified; R10.13 Epigastric pain; R31.29 Other microscopic hematuria; K76.0 Fatty (change of) liver, not elsewhere classified; Z90.710 Acquired absence of both cervix and uterus; Z87.19 Personal history of other diseases of the digestive system; Z88.1 Allergy status to other antibiotic agents; Z79.899 Other long term (current) drug therapy
CPT/HCPCS: 74177; 74183; 76700; 80053; 81003; 81015; 82570; 83690; 85025; 86140; 87086; 93005; 96361; 96374; 96375; 96376; 99285; A9575; G0378; Q9967

== ENCOUNTER → 2025-11-03 13:07 | Outpatient (REF) | payer MEDICARE, SELFPAY | LOC: WDC 13:07 | PROVIDERS: ATTENDING PHYSICIAN Nurse Practitioner Family | DX: Z12.31 Encounter for screening mammogram for malignant neoplasm of breast (principal); Z12.39 Encounter for other screening for malignant neoplasm of breast | CPT/HCPCS: 77063; 77067 ==